=== PATIENT | male | born 1960 | race African-American/Black ===

== ENCOUNTER 2020-11-02 15:26 | Inpatient (IN) ==
[2020-11-02] MEDS ORDERED: ONDANSETRON INJ 2 MG/ML 2 ML VIAL IV STA (15:38)
[2020-11-02] MEDS ORDERED: diphenhydrAMINE 50 MG/ML VIAL IV STA (15:38)
[2020-11-02] MEDS ORDERED: PROMETHAZINE 6.25 MG/50.25 ML BAG IV STA (15:40)
--- NOTE | 2020-11-02 15:43 | Emergency Department Note ---
Impression & Plan Hypoxia, Acute dehydration, Pneumonia, Tachycardia, Rhabdomyolysis, COVID-19 ED Provider Note NAME: NEGRIAT PERRY AGE: 60 SEX: M : 1960 ARRIVES VIA: Ambulance INFORMANT: [Patient][ems, guards] ED PROVIDER(S): [Daryn Wang MD] CHIEF COMPLAINT: Vomiting and diarrhea HISTORY OF PRESENT ILLNESS: The patient is a 60-year-old male who presents from [facility]. He presents by EMS. The patient apparently has been sick for 5 days with nausea, vomiting and diarrhea. He does not have any abdominal pain. He feels dehydrated. He is weak. He has not really been short of breath, no real cough. No fever. No chills or body aches. He states that right now, he is just having more dry heaves than anything. He is unable to tolerate oral intake. The patient denies urinary complaints. He denies any chest pain. He feels very thirsty though. The patient did test positive for Covid 19 today. Of note, he was by report hypoxic prior to arrival. His saturations improved on oxygen. REVIEW OF SYSTEMS: See HPI for pertinent positives and negatives. A total of ten systems were reviewed and were otherwise negative. PMHx/PSHx: See Below SOCIAL HISTORY: See Below. PHYSICAL EXAM: GENERAL: Patient is in moderate distress, HEENT: No acute trauma, normocephalic atraumatic, mucous membranes very dry, no nasal congestion, no scleral icterus. NECK: No stridor, no adenopathy, no meningismus, trachea is midline. LUNGS: Speaks in full sentences, no respiratory distress, no obvious wheeze, no accessory muscle use. HEART: Tachycardic, regular rhythm, equal radial pulses bilaterally. ABDOMEN: Soft, nontender, bowel sounds positive, no hernias, no peritonitis. EXTREMITIES: No cyanosis or edema, full range of motion of all the joints without pain or difficulty, no signs for acute trauma. NEUROLOGIC: Oriented x 3, no acute motor or sensory deficits, no focal weakness. SKIN: No rash, no jaundice, no diaphoresis. DIFFERENTIAL DIAGNOSIS: Infection, dehydration, metabolic abnormality, hypo/hyperglycemia, COVID-19, pneumonia, UTI, electrolyte disturbance, anemia, hypoxia, cardiac sources, intracerebral event, toxicologic, neurologic, as well as other pathologies. EMERGENCY DEPARTMENT COURSE/PROCEDURES: ECG: Indication was tachycardia. The ECG shows a sinus tachycardia with a rate of 109. There is some nonspecific ST change. There is no ST elevation, no PVCs. The QTc is 468. Continuous Cardiac Monitoring: An order was placed for continuous cardiac monitoring. The monitor shows a rate of 102 with sinus tachycardia. Critical Care Note: I have personally spent 45 minutes of critical care time in the direct management of this patient. This includes bedside care, interpretation of diagnostic studies, and testing, discussion with consultants, patient, and family members, and other required patient management activities. This 45 minutes is in excess of all separately billable procedures. MEDICAL DECISION MAKING: There is a moderate leukocytosis at 17,000, this of course is consistent with infection. There is a normal hemoglobin and platelet count. D-dimer was slightly elevated at 680, this is consistent with a Covid infection. No significant electrolyte abnormality or kidney failure. Lactic acid level was not elevated making sepsis less likely. The patient did have some liver enzyme elevations. His bilirubin and AST were elevated. Total CK was elevated at over 2000, consistent with some mild rhabdomyolysis. ECG showed a sinus tachycardia, no acute ischemia. Cardiac enzyme testing x1 is not consistent with acute cardiac injury. Urinalysis did suggest dehydration, no obvious infection, contamination was seen. Chest film shows a bilateral pneumonia consistent with Covid. Covid testing was reported positive today by the [facility]. The patient seemed in some distress upon my initial evaluation. He appeared quite dehydrated clinically. He was hypoxic without oxygen so O2 supplementation was reapplied. The patient received 1.5 L of IV saline. He was given IV Phenergan, IV Zofran and IV Benadryl. This helped his nausea and vomiting. He was able to drink a soda here without difficulty. He received IV ceftriaxone as empiric antibiotic coverage. Because of his hypoxia and Covid diagnosis, he was given IV Decadron. Patient has made improvement with the above treatment. The patient requires a hospital stay. He is too sick to be discharged back to the [facility]. I did speak with case management and the patient/guards. The on- call hospitalist has been consulted. Past Med/Surg History Medical History Hypertension Social History Smoking Status: Former smoker Feels Safe at Home: Yes Allergies Allergies Allergy/AdvReac Type Severity Reaction Status Date / Time No Known Allergies Allergy Verified 11/02/20 15:55 Home Meds Home Medications Medication Instructions Recorded Confirmed amlodipine 10 mg PO DAILY 11/02/20 11/02/20 aspirin 81 mg PO DAILY 11/02/20 11/02/20 diphenhydramine HCl 50 mg PO BID 11/02/20 11/02/20 hydrochlorothiazide 25 mg PO DAILY 11/02/20 11/02/20 levalbuterol tartrate [Xopenex HFA] 2 inh INHALATION QID PRN 11/02/20 11/02/20 lisinopril 40 mg PO DAILY 11/02/20 11/02/20 mirtazapine 15 mg PO HS 11/02/20 11/02/20 montelukast 10 mg PO QPM 11/02/20 11/02/20 Results & Data (ED) Vital Signs Vital Signs - 24 hr 11/02/20 15:39 11/02/20 15:41 11/02/20 15:49 Temperature 36.5 C Temperature Source Oral Pulse Rate 109 H 107 H 109 H Pulse Rate from SpO2 Sensor 110 H 107 H Pulse Rhythm Regular Pulse Strength Normal Respiratory Rate 23 20 20 Respiratory Effort / Characteristics Non-Labored Spontaneous Respiratory Depth Normal Respiratory Pattern Regular Blood Pressure 148/126 H 148/126 H Blood Pressure Mean 130 133 Pulse Oximetry 96 96 97 Oxygen Delivery Method Nasal Cannula Nasal Cannula Nasal Cannula Oxygen Flow Rate 4 4 4 Sepsis Recent Fever Within 48 Hours No Sepsis New/Unexplained Change in Mental Status N/A Sepsis Action Taken by Nursing No Action Required 11/02/20 15:50 11/02/20 15:57 11/02/20 16:00 Temperature Temperature Source Pulse Rate 109 H 106 H Pulse Rate from SpO2 Sensor 109 H 106 H Pulse Rhythm Pulse Strength Respiratory Rate 25 H 26 H Respiratory Effort / Characteristics Respiratory Depth Respiratory Pattern Blood Pressure Blood Pressure Mean Pulse Oximetry 95 96 Oxygen Delivery Method Nasal Cannula Nasal Cannula Nasal Cannula Oxygen Flow Rate 4 4 4 Sepsis Recent Fever Within 48 Hours Sepsis New/Unexplained Change in Mental Status Sepsis Action Taken by Nursing 11/02/20 16:10 11/02/20 16:20 11/02/20 16:30 Temperature Temperature Source Pulse Rate 105 H 108 H 109 H Pulse Rate from SpO2 Sensor 105 H 108 H 109 H Pulse Rhythm Pulse Strength Respiratory Rate 24 28 H 23 Respiratory Effort / Characteristics Respiratory Depth Respiratory Pattern Blood Pressure 161/115 H Blood Pressure Mean 127 Pulse Oximetry 95 95 95 Oxygen Delivery Method Nasal Cannula Nasal Cannula Nasal Cannula Oxygen Flow Rate 4 4 4 Sepsis Recent Fever Within 48 Hours Sepsis New/Unexplained Change in Mental Status Sepsis Action Taken by Nursing 11/02/20 16:31 11/02/20 16:40 11/02/20 16:50 Temperature Temperature Source Pulse Rate 109 H 109 H 108 H Pulse Rate from SpO2 Sensor 109 H 110 H 108 H Pulse Rhythm Pulse Strength Respiratory Rate 26 H 21 29 H Respiratory Effort / Characteristics Respiratory Depth Respiratory Pattern Blood Pressure Blood Pressure Mean Pulse Oximetry 96 98 95 Oxygen Delivery Method Nasal Cannula Nasal Cannula Nasal Cannula Oxygen Flow Rate 4 4 4 Sepsis Recent Fever Within 48 Hours Sepsis New/Unexplained Change in Mental Status Sepsis Action Taken by Nursing 11/02/20 17:00 11/02/20 17:01 11/02/20 17:03 Temperature Temperature Source Pulse Rate 104 H 106 H Pulse Rate from SpO2 Sensor 105 H 106 H Pulse Rhythm Pulse Strength Respiratory Rate 21 34 H Respiratory Effort / Characteristics Respiratory Depth Respiratory Pattern Blood Pressure 150/107 H Blood Pressure Mean 125 Pulse Oximetry 94 95 Oxygen Delivery Method Nasal Cannula Room Air Room Air Oxygen Flow Rate 4 Sepsis Recent Fever Within 48 Hours Sepsis New/Unexplained Change in Mental Status Sepsis Action Taken by Nursing 11/02/20 17:10 11/02/20 17:30 11/02/20 18:00 Temperature Temperature Source Pulse Rate 109 H 106 H Pulse Rate from SpO2 Sensor 109 H 113 H Pulse Rhythm Pulse Strength Respiratory Rate 26 H 24 Respiratory Effort / Characteristics Respiratory Depth Respiratory Pattern Blood Pressure 175/110 H 165/110 H Blood Pressure Mean 131 143 Pulse Oximetry 88 L 93 Oxygen Delivery Method Room Air Oxygen Flow Rate Sepsis Recent Fever Within 48 Hours Sepsis New/Unexplained Change in Mental Status Sepsis Action Taken by Nursing 11/02/20 18:20 11/02/20 18:30 11/02/20 18:31 Temperature Temperature Source Pulse Rate 106 H 106 H 112 H Pulse Rate from SpO2 Sensor 107 H 106 H 108 H Pulse Rhythm Pulse Strength Respiratory Rate 30 H 26 H 16 Respiratory Effort / Characteristics Respiratory Depth Respiratory Pattern Blood Pressure 183/108 H Blood Pressure Mean 147 Pulse Oximetry 96 95 91 Oxygen Delivery Method Nasal Cannula Nasal Cannula Nasal Cannula Oxygen Flow Rate 3 3 3 Sepsis Recent Fever Within 48 Hours Sepsis New/Unexplained Change in Mental Status Sepsis Action Taken by Nursing 11/02/20 19:00 11/02/20 19:31 Temperature Temperature Source Pulse Rate 102 H 102 H Pulse Rate from SpO2 Sensor 102 H 102 H Pulse Rhythm Pulse Strength Respiratory Rate 21 24 Respiratory Effort / Characteristics Respiratory Depth Respiratory Pattern Blood Pressure 145/96 H 130/92 Blood Pressure Mean 102 102 Pulse Oximetry 96 96 Oxygen Delivery Method Oxygen Flow Rate Sepsis Recent Fever Within 48 Hours Sepsis New/Unexplained Change in Mental Status Sepsis Action Taken by [facility] Medications Current Medication List: was personally reviewed by me Laboratory Data Attestation: I reviewed the patient's lab results. Result diagrams: 11/02/20 15:55 11/02/20 15:55 Lab Results 11/02/20 11/02/20 11/02/20 Range/Units 15:55 15:55 15:55 WBC 17.26 H (4.8-10.8) K/uL RBC 4.70 (4.7-6.1) M/uL Hgb 14.2 (14.0-18.0) g/dL Hct 43.0 (42-52) % MCV 91.5 (80-100) fL MCH 30.2 (25-34) pg MCHC 33.0 (32-36) g/dL RDW Std Deviation 43.4 (36.4-46.3) fL RDW Coeff of Vineet 12.9 (11.5-14.5) % Plt Count 274 (130-400) K/uL MPV 11.5 H (7.4-10.4) fL Immature Gran % (Auto) 0.2 % Neut % (Auto) 85.1 % Lymph % (Auto) 7.1 % [place] % (Auto) 7.4 % Eos % (Auto) 0.0 % Baso % (Auto) 0.2 % Neut # (Auto) 14.68 H (1.4-6.5) K/uL Lymph # (Auto) 1.22 (1.2-3.4) K/uL [place] # (Auto) 1.28 H (0.11-0.59) K/uL Eos # (Auto) 0.00 (0-0.5) K/uL Baso # (Auto) 0.04 (0-0.2) K/uL Immature Gran # (Auto) 0.04 H (0.00-0.02) K/uL Echinocytes 1+ D-Dimer (0-500) ug/L FEU Sodium 137 (136-145) mmol/L Potassium 4.7 (3.5-5.1) mmol/L Chloride 101 (98-107) mmol/L Carbon Dioxide 30 (21-32) mmol/L Anion Gap 6.0 (3-11) BUN 29 H (7-18) mg/dl Creatinine 1.23 (0.6-1.4) mg/dl Est Cr Clr Drug Dosing 76.1 ml/min Est GFR ( Amer) 72.5 Est GFR (Non-Af Amer) 62.5 BUN/Creatinine Ratio 23.6 H (10-20) Glucose 106 H (70-99) mg/dl Lactate 1.2 (0.4-2.0) mmol/L Calcium 8.7 (8.5-10.1) mg/dl Magnesium 3.2 H (1.8-2.4) mg/dl Total Bilirubin 3.6 H (0.2-1) mg/dl AST 82 H (15-37) U/L ALT 51 (12-78) U/L Alkaline Phosphatase 85 (45-117) U/L Total Creatine Kinase 2574 H (39-308) U/L Troponin I 0.019 (0-0.045) ng/ml Total Protein 9.1 H (6.4-8.2) gm/dl Albumin 3.5 (3.4-5.0) gm/dl Globulin 5.6 H (2.5-4.0) gm/dl Albumin/Globulin Ratio 0.6 L (0.9-2) Urine Color Urine Appearance (Clear) Urine pH (4.5-7.5) Ur Specific Benton (1.000-1.030) Urine Protein (Negative) Urine Glucose (UA) (Negative) Urine Ketones (Negative) Urine Blood (Negative) Urine Nitrite (Negative) Urine Bilirubin (Negative) Urine Urobilinogen (Negative) Ur Leukocyte Esterase (Negative) Urine WBC (Auto) (0-5) /hpf Urine RBC (Auto) (0-4) /hpf U Hyaline Cast (Auto) (0-5) /lpf U Epithel Cells (Auto) (0-5) /lpf Urine Bacteria (Auto) (Negative) Ur Renal Epithelial Cell Urine Mucus (None Prsent) Urine Yeast 11/02/20 11/02/20 Range/Units 15:55 18:22 WBC (4.8-10.8) K/uL RBC (4.7-6.1) M/uL Hgb (14.0-18.0) g/dL Hct (42-52) % MCV (80-100) fL MCH (25-34) pg MCHC (32-36) g/dL RDW Std Deviation (36.4-46.3) fL RDW Coeff of Vineet (11.5-14.5) % Plt Count (130-400) K/uL MPV (7.4-10.4) fL Immature Gran % (Auto) % Neut % (Auto) % Lymph % (Auto) % [place] % (Auto) % Eos % (Auto) % Baso % (Auto) % Neut # (Auto) (1.4-6.5) K/uL Lymph # (Auto) (1.2-3.4) K/uL [place] # (Auto) (0.11-0.59) K/uL Eos # (Auto) (0-0.5) K/uL Baso # (Auto) (0-0.2) K/uL Immature Gran # (Auto) (0.00-0.02) K/uL Echinocytes D-Dimer 680 H* (0-500) ug/L FEU Sodium (136-145) mmol/L Potassium (3.5-5.1) mmol/L Chloride (98-107) mmol/L Carbon Dioxide (21-32) mmol/L Anion Gap (3-11) BUN (7-18) mg/dl Creatinine (0.6-1.4) mg/dl Est Cr Clr Drug Dosing ml/min Est GFR ( Amer) Est GFR (Non-Af Amer) BUN/Creatinine Ratio (10-20) Glucose (70-99) mg/dl Lactate (0.4-2.0) mmol/L Calcium (8.5-10.1) mg/dl Magnesium (1.8-2.4) mg/dl Total Bilirubin (0.2-1) mg/dl AST (15-37) U/L ALT (12-78) U/L Alkaline Phosphatase (45-117) U/L Total Creatine Kinase (39-308) U/L Troponin I (0-0.045) ng/ml Total Protein (6.4-8.2) gm/dl Albumin (3.4-5.0) gm/dl Globulin (2.5-4.0) gm/dl Albumin/Globulin Ratio (0.9-2) Urine Color Door Urine Appearance Clear (Clear) Urine pH 5.5 (4.5-7.5) Ur Specific Benton 1.032 H (1.000-1.030) Urine Protein 2+ H (Negative) Urine Glucose (UA) Negative (Negative) Urine Ketones 2+ H (Negative) Urine Blood 2+ H (Negative) Urine Nitrite Positive A (Negative) Urine Bilirubin Negative (Negative) Urine Urobilinogen Negative (Negative) Ur Leukocyte Esterase 1+ H (Negative) Urine WBC (Auto) 5-10 H (0-5) /hpf Urine RBC (Auto) 0-4 (0-4) /hpf U Hyaline Cast (Auto) 0 (0-5) /lpf U Epithel Cells (Auto) >30 H (0-5) /lpf Urine Bacteria (Auto) Negative (Negative) Ur Renal Epithelial Cell Not Reportable Urine Mucus Present A (None Prsent) Urine Yeast Not Reportable Administered Medications Discontinued Medications Dexamethasone (Dexamethasone Sod Inj 10 Mg/Ml Vial) 6 mg IV NOW ONE Stop: 11/02/20 17:13 Last Admin: 11/02/20 17:27 Dose: 6 mg Documented by: [id number] Diphenhydramine HCl (Diphenhydramine 50 Mg/Ml Vial) 12.5 mg IV NOW STA Stop: 11/02/20 15:39 Last Admin: 11/02/20 16:05 Dose: 12.5 mg Documented by: [id number] Sodium Chloride (Nss 1000ml) 1,000 mls @ 999 mls/hr IV .Q1H1M SUSANNE Stop: 11/02/20 16:45 Last Infusion: 11/02/20 17:08 Dose: 0 mls/hr Documented by: [id number] Admin: 11/02/20 16:05 Dose: 999 mls/hr Documented by: [id number] Promethazine HCl (Phenergan) 6.25 mg in 50.25 mls @ 201 mls/hr IV NOW STA Stop: 11/02/20 15:54 Last Infusion: 12/04/20 16:58 Dose: 0 mls/hr Documented by: [id number] Admin: 11/02/20 16:02 Dose: 201 mls/hr Documented by: [id number] Sodium Chloride (Nss 1000ml) 500 mls @ 999 mls/hr IV .Q31M ONE Stop: 11/02/20 17:33 Last Infusion: 11/02/20 18:30 Dose: 0 mls/hr Documented by: [id number] Admin: 11/02/20 17:27 Dose: 999 mls/hr Documented by: [id number] Ceftriaxone Sodium (Rocephin) 2,000 mg in 70 mls @ 140 mls/hr IV NOW STA Stop: 11/02/20 17:41 Last Infusion: 11/02/20 18:30 Dose: 0 mls/hr Documented by: [id number] Admin: 11/02/20 17:27 Dose: 140 mls/hr Documented by: [id number] Ondansetron HCl (Ondansetron Inj 2 Mg/Ml 2 Ml Vial) 4 mg IV NOW STA Stop: 11/02/20 15:39 Last Admin: 11/02/20 16:05 Dose: 4 mg Documented by: [id number] Imaging Data Radiologist's Impression: XR chest 1V portable HISTORY: weakness COMPARISON: None. FINDINGS: No pneumothorax. No pleural effusions. The heart is mildly enlarged. There are hazy bilateral mid to lower lung zone airspace opacities consistent with a pneumonia. There are low lung volumes. IMPRESSION: Hazy bilateral mid to lower lung zone airspace opacities consistent with a pneumonia. Discharge Plan Visit Data Chief Complaint: Shortness of Breath/Dyspnea Stated Complaint: SOB, COVID + ED Provider: Daryn Wang Discharge Problem: Hypoxia, Acute dehydration, Pneumonia, Tachycardia, Rhabdomyolysis, COVID-19 Patient Disposition: Admitted As Inpatient Condition: Fair Forms Stand Alone Forms: My [facility] [employer] Prescriptions Prescriptions: No Action diphenhydramine HCl 50 mg Capsule 50 mg PO BID RF: 0 amlodipine 10 mg Tablet 10 mg PO DAILY RF: 0 aspirin 81 mg Tablet,Chewable 81 mg PO DAILY RF: 0 montelukast 10 mg Tablet 10 mg PO QPM RF: 0 hydrochlorothiazide 25 mg Tablet 25 mg PO DAILY RF: 0 mirtazapine 15 mg Tablet 15 mg PO HS RF: 0 lisinopril 40 mg Tablet 40 mg PO DAILY RF: 0 levalbuterol tartrate [Xopenex HFA] 45 mcg/actuation Hfa Aerosol Inhaler 2 inh INHALATION QID PRN (Reason: Shortness Of Breath) RF: 0 Referrals Referrals: David BARRERA [Primary Care Provider] - Discharge Problem: Pneumonia Qualifiers: Pneumonia type: due to unspecified organism Laterality: bilateral Lung location: unspecified part of lung Qualified Code(s): J18.9 - Pneumonia, unspecified organism Rhabdomyolysis Qualifiers: Rhabdomyolysis type: non-traumatic Qualified Code(s): M62.82 - Rhabdomyolysis
[2020-11-02] MEDS ORDERED: SODIUM CHLORIDE 0.9% 1000ML 1,000 ML IV SCH (15:45)
[2020-11-02 16:18] LABS: Hemoglobin 14.2 g/dL (14.0-18.0); Mean Corpuscular Hemoglobin 30.2 pg (25-34); Mean Corpuscular Volume 91.5 fL (80-100); Mean Platelet Volume 11.5 fL (7.4-10.4); Platelet Count 274 K/uL (130-400); RDW Coefficient of Variation 12.9 % (11.5-14.5); RDW Standard Deviation 43.4 fL (36.4-46.3); White Blood Count 17.26 K/uL (4.8-10.8)
--- NOTE | 2020-11-02 16:27 | XRay Report ---
XR chest 1V portable HISTORY: weakness COMPARISON: None. FINDINGS: No pneumothorax. No pleural effusions. The heart is mildly enlarged. There are hazy bilater al mid to lower lung zone airspace opacities consistent with a pneumonia. There are low lung volumes. IMPRESSION: Hazy bilateral mid to lower lung zone airspace opacities consistent with a pneumonia. ACT 112: Negative or not required by law. Electronically signed by: Fabio Javier M.D. 11/02/2020 4:25 PM
[2020-11-02 16:36] LABS: Albumin Level 3.5 gm/dl (3.4-5.0); BUN Creatinine Ratio 23.6 (10-20); Calcium 8.7 mg/dl (8.5-10.1); Creatinine Clr Calc Pharmacy 76.1 ml/min; Est GFR (African American) 72.5; Est GFR (Non-African American) 62.5; Magnesium 3.2 mg/dl (1.8-2.4); Potassium 4.7 mmol/L (3.5-5.1)
[2020-11-02 16:45] LABS: Basophils # (auto) 0.04 K/uL (0-0.2); Basophils % (auto) 0.2 %; Echinocytes 1+; Immature Granulocytes # (auto) 0.04 K/uL (0.00-0.02); Immature Granulocytes % (auto) 0.2 %; Lymphocytes # (auto) 1.22 K/uL (1.2-3.4); Lymphocytes % (auto) 7.1 %; Monocytes # (auto) 1.28 K/uL (0.11-0.59); Monocytes % (auto) 7.4 %; Neutrophils # (auto) 14.68 K/uL (1.4-6.5); Neutrophils % (auto) 85.1 %
[2020-11-02 16:51] LABS: Albumin Globulin Ratio 0.6 (0.9-2); Bilirubin,Total 3.6 mg/dl (0.2-1); Globulin 5.6 gm/dl (2.5-4.0); Total Protein 9.1 gm/dl (6.4-8.2); Troponin I 0.019 ng/ml (0-0.045)
[2020-11-02] MEDS ORDERED: SODIUM CHLORIDE 0.9% 1000ML 500 ML IV ONE (17:03)
[2020-11-02 17:04] LABS: D Dimer 680 ug/L FEU (0-500)
[2020-11-02] MEDS ORDERED: cefTRIAXone SODIUM 2,000 MG/70 ML BAG IV STA (17:12)
[2020-11-02] MEDS ORDERED: DEXAMETHASONE SOD INJ 10 MG/ML VIAL IV ONE (17:12)
--- NOTE | 2020-11-02 18:08 | Electrocardiogram Report ---
Test Reason : Blood Pressure : / mmHG Vent. Rate : 109 BPM Atrial Rate : 109 BPM P-R Int : 152 ms QRS Dur : 094 ms QT Int : 348 ms P-R-T Axes : 018 024 002 degrees QTc Int : 468 ms Sinus tachycardia Possible Left atrial enlargement Borderline ECG No previous ECGs available Confirmed by Adam Devine ([id number]) on 11/02/2020 6:08:41 PM Referred By: [facility] Confirmed By:Jose Angel Devine
--- NOTE | 2020-11-02 18:30 | History & Physical Report ---
Date of Service November 02, 2020 Assessment & Plan (1) Pneumonia due to COVID-19 virus: 60-year-old male prisoner from [facility] with past medical history hypertension, asthma, insomnia presents with concerns for 5 days of nausea vomiting and diarrhea along with shortness of breath admitted with concerns of pneumonia due to COVID-19 virus. Pneumonia due to COVID-19 virus Admit to Covid unit, medical with telemetry Isolation precautionsairborne and contact Continue supplemental O2goal saturation 90%. Patient currently on 3 L nasal cannula with no prior O2 needs at baseline Check inflammatory markersESR, CRP, ferritin, LDH. D-dimer 680 on admission Check procalcitonin -HAP Coverage with IV Vanc/Zosyn in prisoner . Blood cx pending Dexamethasone 6 mg IV daily Convalescent plasmapatient consented in ER and form placed in chart Remdesivir to be discussed with pulmonary team Zinc 220 mg p.o. daily Cholecalciferol 2000 units p.o. daily Pepcid 20 mg IV twice daily Melatonin nightly Lovenox 40 twice daily Tylenol as needed for fever Hypertension Continue amlodipine 10 mg, hydrochlorothiazide 25 mg, lisinopril 40 mg -prn IV Hydralazine for systolic >180 Elevated T.Bili/AST -T bili 3.6 and AST 82 on admit. No prior for comparison -In the setting of 5 days of N/V/D and deferring currently additional imaging -trend daily CMP Mild Rhabdomyolysis -Nontraumatic nonexertional in setting of infection -CK 2574 on admission -Myoglobinuria present -Encouraged PO intake FEN/GI: Regular diet DVT prophylaxis: Lovenox SQ 40 BID CODE STATUS: Full code Dispo: Covid telemetry unit History of Present Illness Chief Complaint: Nausea vomiting diarrhea Primary Care Provider: [facility] 60-year-old male prisoner from [facility] with past medical history hypertension, asthma, insomnia presents with concerns for 5 days of nausea vomiting and diarrhea. Patient reportedly in [facility] with multiple positive Covid exposures. Patient with associated chills, shortness of breath with minimal exertion such as cleaning the bathroom when he reportedly has good lung capacity, fatigue, loss of taste and sore throat. Patient otherwise denies any fevers, sweats, cough, body aches, or other urinary symptoms, chest pain, abdominal pain, urinary symptoms, loss of smell. Patient no other acute concerns or complaints. Pertinent labs: WBC 17.26, D-dimer 680, T bili 3.6, AST 82, CK 2574, Covid positive Chest x-ray: Hazy bilateral mid to lower lung zone airspace opacities consistent with a pneumonia ER course: IV Rocephin 2 g, IV dexamethasone 6 mg, IV diphenhydramine 25 mg, IV Zofran 4 mg every 8 IV promethazine 6.25 mg, NSS 1.5 L Allergies Allergy/AdvReac Type Severity Reaction Status Date / Time No Known Allergies Allergy Verified 11/02/20 15:55 Home Medications Medication Instructions Recorded Confirmed Type amlodipine 10 mg PO DAILY 11/02/20 11/02/20 History aspirin 81 mg PO DAILY 11/02/20 11/02/20 History diphenhydramine HCl 50 mg PO BID 11/02/20 11/02/20 History hydrochlorothiazide 25 mg PO DAILY 11/02/20 11/02/20 History levalbuterol tartrate [Xopenex HFA] 2 inh INHALATION QID PRN 11/02/20 11/02/20 History lisinopril 40 mg PO DAILY 11/02/20 11/02/20 History mirtazapine 15 mg PO HS 11/02/20 11/02/20 History montelukast 10 mg PO QPM 11/02/20 11/02/20 History Past Med/Surg History Medical History Hypertension Social History Smoking Status: Former smoker Hx Alcohol Use: No Hx Substance Use: No Communication Ability: Effective 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 Beliefs That Will Affect Care: None Current Living Situation: Other Current Living Situation Comment: [facility] Feels Safe at Home: Yes Safety Concerns: Feels Safe At This Time Assistive Devices: Oxygen - Continuous Review of Systems Review of Systems: All systems reviewed & are unremarkable except as noted in HPI & below Physical Exam Constitutional: + obese Eyes: PERRL, conjunctivae normal, anicteric sclerae ENMT: Nose: + dry nasal mucous membranes Respiratory: normal respiratory effort; no labored breathing and does not use accessory muscles Cardiovascular: Rate/Rhythm: + tachycardic Gastrointestinal (Abdomen): normal bowel sounds, soft, nontender, no hepatosplenomegaly Skin: no rashes, warm and dry Psychiatric: A+Ox3, euthymic affect Results & Data Results & Data ([facility]) Vital Signs (Past 12 Hours) Vital Signs Temp Pulse Resp BP Pulse Ox 11/02/20 18:00 165/110 H 11/02/20 17:30 106 H 24 175/110 H 93 11/02/20 17:10 109 H 26 H 88 L 11/02/20 17:01 106 H 34 H 95 11/02/20 17:00 104 H 21 150/107 H 94 11/02/20 16:50 108 H 29 H 95 11/02/20 16:40 109 H 21 98 11/02/20 16:31 109 H 26 H 96 11/02/20 16:30 109 H 23 161/115 H 95 11/02/20 16:20 108 H 28 H 95 11/02/20 16:10 105 H 24 95 11/02/20 16:00 106 H 26 H 96 11/02/20 15:50 109 H 25 H 95 11/02/20 15:49 36.5 C 109 H 20 148/126 H 97 11/02/20 15:41 107 H 20 96 11/02/20 15:39 109 H 23 148/126 H 96 Laboratory Results Laboratory Results - last 24 hr 11/02/20 11/02/20 11/02/20 15:55 15:55 15:55 WBC 17.26 H RBC 4.70 Hgb 14.2 Hct 43.0 MCV 91.5 MCH 30.2 MCHC 33.0 RDW Std Deviation 43.4 RDW Coeff of [place] 12.9 Plt Count 274 MPV 11.5 H Immature Gran % (Auto) 0.2 Neut % (Auto) 85.1 Lymph % (Auto) 7.1 Casey % (Auto) 7.4 Eos % (Auto) 0.0 Baso % (Auto) 0.2 Neut # (Auto) 14.68 H Lymph # (Auto) 1.22 Casey # (Auto) 1.28 H Eos # (Auto) 0.00 Baso # (Auto) 0.04 Immature Gran # (Auto) 0.04 H Echinocytes 1+ D-Dimer Sodium 137 Potassium 4.7 Chloride 101 Carbon Dioxide 30 Anion Gap 6.0 BUN 29 H Creatinine 1.23 Est Cr Clr Drug Dosing 76.1 Est GFR ( Amer) 72.5 Est GFR (Non-Af Amer) 62.5 BUN/Creatinine Ratio 23.6 H Glucose 106 H Lactate 1.2 Calcium 8.7 Magnesium 3.2 H Total Bilirubin 3.6 H AST 82 H ALT 51 Alkaline Phosphatase 85 Total Creatine Kinase 2574 H Troponin I 0.019 Total Protein 9.1 H Albumin 3.5 Globulin 5.6 H Albumin/Globulin Ratio 0.6 L Urine Color Urine Appearance Urine pH Ur Specific [place] Urine Protein Urine Glucose (UA) Urine Ketones Urine Blood Urine Nitrite Urine Bilirubin Urine Urobilinogen Ur Leukocyte Esterase 11/02/20 11/02/20 15:55 18:22 WBC RBC Hgb Hct MCV MCH MCHC RDW Std Deviation RDW Coeff of [place] Plt Count MPV Immature Gran % (Auto) Neut % (Auto) Lymph % (Auto) Casey % (Auto) Eos % (Auto) Baso % (Auto) Neut # (Auto) Lymph # (Auto) Casey # (Auto) Eos # (Auto) Baso # (Auto) Immature Gran # (Auto) Echinocytes D-Dimer 680 H* Sodium Potassium Chloride Carbon Dioxide Anion Gap BUN Creatinine Est Cr Clr Drug Dosing Est GFR ( Amer) Est GFR (Non-Af Amer) BUN/Creatinine Ratio Glucose Lactate Calcium Magnesium Total Bilirubin AST ALT Alkaline Phosphatase Total Creatine Kinase Troponin I Total Protein Albumin Globulin Albumin/Globulin Ratio Urine Color Pending Urine Appearance Pending Urine pH Pending Ur Specific [place] Pending Urine Protein Pending Urine Glucose (UA) Pending Urine Ketones Pending Urine Blood Pending Urine Nitrite Pending Urine Bilirubin Pending Urine Urobilinogen Pending Ur Leukocyte Esterase Pending Code Status & VTE Plan Code Status FULL Supervising Physician Co-Signing Physician Notes Attending attestation Pt seen and examined in concert with Dr. Barbosa. In agreement with the documented findings as noted in the resident documentation with any exceptions or additions as noted here. Resting comfortably in bed tolerating 2LNC without subjective SOB. On examination, scattered rhonchi bilateral with some decreased BS at bases. S1/S2 nl RRR no MCG. Abd NT/ND BS + PNA 2/2 COVID-19 virus - agree w/ dexamethasone, supportive care and supplementations as noted. Follow up markers. Start Vanc/Zosyn and f/u Cx ([facility] population) HTN - continue home regimen and monitor Else see resident documentation as noted. Resident Activity Tracking Resident Involvement: Resident Care Provided Care Provided: Adult Hospital Medicine
[2020-11-02 18:38] LABS: Appearance Urine Clear (Clear); Bacteria Urine Automated Negative (Negative); Blood Urine 2+ (Negative); Color Urine Orange; Epithelial Cell Urine Auto >30 /lpf (0-5); Glucose Urine UA Negative (Negative); Ketones Urine 2+ (Negative); Leukocyte Esterase Urine 1+ (Negative); Nitrite Urine Positive (Negative); Protein Urine 2+ (Negative); Specific Gravity Urine 1.032 (1.000-1.030); Urobilinogen Urine Negative (Negative); pH Urine 5.5 (4.5-7.5)
[2020-11-02 18:48] LABS: Bilirubin Urine Negative (Negative); Ictotest Urine Negative (Negative)
[2020-11-02] MEDS ORDERED: hydrALAZINE HCL 20 MG/ML VIAL IV STA (18:52)
[2020-11-02 18:57] LABS: Cast Urine Automated 0 /lpf (0-5); RBC Urine Automated 0-4 /hpf (0-4)
[2020-11-02 18:58] LABS: Mucus Urine Present (None Prsent)
[2020-11-02] MEDS ORDERED: VANCOMYCIN CONSULT ACTIVE PRN (21:28)
[2020-11-02] MEDS ORDERED: hydrALAZINE HCL 20 MG/ML VIAL IV PRN (21:28)
[2020-11-02] MEDS ORDERED: PIPERACILL/TAZOBAC CONSULT ACTIVE PRN (21:28)
[2020-11-02] MEDS ORDERED: ALUMINUM/MAGNESIUM SUSP 30 ML UDC PO PRN (21:28)
[2020-11-02] MEDS ORDERED: ACETAMINOPHEN 325 MG TAB PO PRN (21:28)
[2020-11-02] MEDS ORDERED: ONDANSETRON INJ 2 MG/ML 2 ML VIAL IV PRN (21:28)
[2020-11-02] MEDS ORDERED: PIPERACILLIN/TAZOBACTAM 4.5 GM in DEXTROSE 5% 100 ML IV ONE (21:45)
[2020-11-02] MEDS ORDERED: VANCOMYCIN HCL 2,500 MG in SODIUM CHLORIDE 0.9% 500 ML IV ONE (22:00)
--- NOTE | 2020-11-02 22:09 | Pharmacy Report ---
Pharmacy Abx Dose Short Note - Date of Service November 02, 2020 - Assessment & Plan Assessment * Mr Lizarraga is a 60 year old M receiving Vancomycin/Zosyn for treatment of pneumonia, COVID + * PMH is significant for asthma, HTN. Pt is currently incarcerated. * Urine and blood cultures pending. CXR consistent w/ pna. Plan Vancomycin * Vancomycin 2500mg (~24mg/kg) IV x1 dose, then * vancomycin 1500mg (~14.5mg/kg) IV q12h * Patient's estimated p'kinetic parameters (based on CrCl ~ 76mL/min): * Vd ~ 0.7L/kg Ke ~ 0.067/hr t1/2 ~ 10.3hr * Goal trough level for pulmonary indication: 15 to 20 mcg/mL * Trough level ordered for 11/04, prior to the 3rd maintenance dose. This will not yet represent steady-state. Zosyn * 4.5gm IV x1 dose, then * 4.5gm IV q8h, extended infusion Pharmacy will continue to follow and will adjust dose/frequency as necessary. Thank you.
[2020-11-02] MEDS: MIRTAZAPINE TAB 15 MG TAB PO SCH (22:19)
[2020-11-02] MEDS: MONTELUKAST SODIUM 10 MG TABLET PO SCH (22:19)
[2020-11-02] MEDS: FAMOTIDINE 20 MG in SYRINGE 3 ML IV SCH (22:19)
[2020-11-02] MEDS: diphenhydrAMINE Capsule 25 MG CAP PO SCH (22:19)
[2020-11-02 22:28] LABS: C Reactive Protein 20.5 mg/dl (0-0.29); Ferritin 1287.6 ng/ml (8-388)
[2020-11-02] MEDS: MELATONIN 3 MG TAB PO SCH (22:33)
[2020-11-02] MEDS: ENOXAPARIN INJ 40 MG/0.4 ML SYR SQ SCH (22:34)
[2020-11-03] MEDS: PIPERACILLIN/TAZOBACTAM 4.5 GM in DEXTROSE 5% 100 ML IV SCH ×2 (04:05→11:30)
[2020-11-03 04:10] LABS: Hematocrit (blood only) 39.1 % (42-52); Hemoglobin 12.3 g/dL (14.0-18.0); Mean Corpuscular Hemoglobin 29.4 pg (25-34); Mean Corpuscular Hgb Conc 31.5 g/dL (32-36); Mean Corpuscular Volume 93.3 fL (80-100); Mean Platelet Volume 11.6 fL (7.4-10.4); Platelet Count 279 K/uL (130-400); RDW Coefficient of Variation 13.1 % (11.5-14.5); RDW Standard Deviation 44.7 fL (36.4-46.3); Red Blood Count 4.19 M/uL (4.7-6.1); White Blood Count 14.02 K/uL (4.8-10.8)
[2020-11-03 04:28] LABS: Albumin Level 2.9 gm/dl (3.4-5.0); BUN Creatinine Ratio 26.9 (10-20); Calcium 8.1 mg/dl (8.5-10.1); Creatinine Clr Calc Pharmacy 76.7 ml/min; Est GFR (African American) 73.2; Est GFR (Non-African American) 63.1; Potassium 4.7 mmol/L (3.5-5.1)
[2020-11-03 04:35] LABS: Albumin Globulin Ratio 0.6 (0.9-2); Bilirubin,Total 2.4 mg/dl (0.2-1); Total Protein 7.9 gm/dl (6.4-8.2)
[2020-11-03 04:58] LABS: Basophils # (auto) 0.06 K/uL (0-0.2); Basophils % (auto) 0.4 %; Immature Granulocytes # (auto) 0.04 K/uL (0.00-0.02); Immature Granulocytes % (auto) 0.3 %; Lymphocytes # (auto) 1.24 K/uL (1.2-3.4); Lymphocytes % (auto) 8.8 %; Monocytes # (auto) 0.82 K/uL (0.11-0.59); Monocytes % (auto) 5.8 %; Neutrophils # (auto) 11.86 K/uL (1.4-6.5); Neutrophils % (auto) 84.7 %
[2020-11-03] MEDS: diphenhydrAMINE Capsule 25 MG CAP PO SCH ×2 (08:30→19:49)
[2020-11-03] MEDS: ASPIRIN 81 MG ECTAB PO SCH (08:30)
[2020-11-03] MEDS ORDERED: hydroCHLOROthiazide 25 MG TAB PO SCH (09:00)
[2020-11-03] MEDS ORDERED: ZINC SULFATE 220 MG CAPSULE PO SCH (09:00)
[2020-11-03] MEDS ORDERED: dexAMETHasone 6 MG in SYRINGE 0 ML IV SCH (09:00)
[2020-11-03] MEDS ORDERED: CHOLECALCIFEROL 1,000 UNITS 25 MCG TAB PO SCH (09:00)
[2020-11-03] MEDS ORDERED: lisinopril 40 MG TAB PO SCH (09:00)
[2020-11-03] MEDS: FAMOTIDINE 20 MG in SYRINGE 3 ML IV SCH (09:45)
[2020-11-03] MEDS ORDERED: VANCOMYCIN HCL 1,500 MG in SODIUM CHLORIDE 0.9% 500 ML IV SCH (10:00)
[2020-11-03] MEDS: amLODIPine BESYLATE 5 MG TAB PO SCH (10:00)
[2020-11-03] MEDS: ENOXAPARIN INJ 40 MG/0.4 ML SYR SQ SCH (10:00)
[2020-11-03] MEDS ORDERED: AZITHROMYCIN 250 MG TAB PO ONE (18:07)
[2020-11-03] MEDS ORDERED: cefTRIAXone SODIUM 1,000 MG in DEXTROSE 5% 50 ML IV SCH (18:15)
[2020-11-03] MEDS: MONTELUKAST SODIUM 10 MG TABLET PO SCH (19:49)
[2020-11-03] MEDS: MIRTAZAPINE TAB 15 MG TAB PO SCH (19:50)
[2020-11-03] MEDS: cefTRIAXone SODIUM 2,000 MG in DEXTROSE 5% 50 ML IV SCH (20:11)
[2020-11-03] MEDS: MELATONIN 3 MG TAB PO SCH (20:13)
[2020-11-04] MEDS: dexAMETHasone 4 MG TAB PO SCH (07:43)
[2020-11-04] MEDS: ASPIRIN 81 MG ECTAB PO SCH (07:44)
[2020-11-04] MEDS: amLODIPine BESYLATE 5 MG TAB PO SCH (07:44)
[2020-11-04] MEDS: ENOXAPARIN INJ 40 MG/0.4 ML SYR SQ SCH (07:44)
[2020-11-04] MEDS: diphenhydrAMINE Capsule 25 MG CAP PO SCH ×2 (07:44→22:23)
[2020-11-04 07:54] LABS: BUN Creatinine Ratio 33.6 (10-20); Calcium 8.2 mg/dl (8.5-10.1); Creatinine Clr Calc Pharmacy 92.8 ml/min; Est GFR (Non-African American) 79.3; Magnesium 3.4 mg/dl (1.8-2.4); Potassium 4.3 mmol/L (3.5-5.1)
[2020-11-04 08:02] LABS: Hematocrit (blood only) 37.2 % (42-52); Hemoglobin 11.6 g/dL (14.0-18.0); Mean Corpuscular Hemoglobin 29.4 pg (25-34); Mean Corpuscular Hgb Conc 31.2 g/dL (32-36); Mean Corpuscular Volume 94.4 fL (80-100); Platelet Count 308 K/uL (130-400); RDW Coefficient of Variation 13.1 % (11.5-14.5); RDW Standard Deviation 45.2 fL (36.4-46.3); Red Blood Count 3.94 M/uL (4.7-6.1); White Blood Count 15.48 K/uL (4.8-10.8)
[2020-11-04] MEDS ORDERED: VANCOMYCIN TROUGH ONE (09:30)
[2020-11-04] MEDS ORDERED: LOPERAMIDE HCL 2 MG CAP PO PRN (13:15)
--- NOTE | 2020-11-04 13:25 | Hospitalist Progress Note ---
Date of Service November 04, 2020 Assessment & Plan (1) Pneumonia due to COVID-19 virus: Weaning O2 as able - Down to 1 L. - Continue dexamethasone. - Procal down from 0.36 to 0.16 from 11/02 to 11/04. Will give CAP course to cover for any superimposed bacterial process. WBC was elevated even prior to abx, so more concern than most Covid patients. - Imodium PRN for diarrhea (2) Hypertension: Hadn't been taking any of his HTN meds within the last few weeks prior to admission. BP today is 120/75. - Continue amlodipine only (3) DVT prophylaxis: Lovenox 40 mg SQ daily Admission and Anticipated Discharge Date Admission Date: November 02, 2020 Subjective No real shortness of breath. Doing well. Reports no fevers/chills, chest pain, shortness of breath, abdominal pain, nausea, or vomiting. Physical Exam Constitutional: WD/WN, vitals as above Eyes: EOM intact bilaterally; no conjunctival abnormality ENMT: external ear and nose normal, oropharynx normal Neck: trachea midline, no thyromegaly normal visual inspection Respiratory: normal respiratory effort, lungs clear to auscultation no respiratory distress Cardiovascular: RRR, no murmur, no edema Gastrointestinal (Abdomen): Inspection/Auscultation: abdomen normal to inspection; abdomen not distended Musculoskeletal: no cyanosis or clubbing, extremities motor strength 5/5 Skin: no rashes, warm and dry Neurologic: moves all extremities and awake Psychiatric: Orientation: alert, oriented to person and cooperative Results & Data Results & Data ([facility]) Vital Signs (Past 12 Hours) Vital Signs Temp Pulse Pulse Resp BP BP Pulse Ox 11/04/20 11:34 36.5 C 78 18 121/75 95 11/04/20 08:59 68 11/04/20 07:29 36.5 C 82 18 126/81 94 11/04/20 03:03 36.5 C 70 19 145/99 H 96 PG Care Time/CCT Total # of Minutes Spent Total Time Spent with Patient: Total time spent is greater than 50% in coordination of care (as documented) at patient's floor/unit and/or counseling patient: Coding Level of Care Code 06303 Subseq Hosp Care Lvl 2 Diagnoses Pneumonia due to COVID-19 virus U07.1; J12.89 Hypertension I10 DVT prophylaxis Z29.9
[2020-11-04] MEDS ORDERED: AZITHROMYCIN 250 MG TAB PO SCH (20:00)
[2020-11-04] MEDS: MIRTAZAPINE TAB 15 MG TAB PO SCH (22:23)
[2020-11-04] MEDS: MELATONIN 3 MG TAB PO SCH (22:23)
[2020-11-04] MEDS: MONTELUKAST SODIUM 10 MG TABLET PO SCH (22:26)
[2020-11-04] MEDS: cefTRIAXone SODIUM 2,000 MG in DEXTROSE 5% 50 ML IV SCH (22:27)
[2020-11-05 07:22] LABS: Hematocrit (blood only) 36.9 % (42-52); Hemoglobin 11.3 g/dL (14.0-18.0); Mean Corpuscular Hemoglobin 29.2 pg (25-34); Mean Corpuscular Hgb Conc 30.6 g/dL (32-36); Mean Corpuscular Volume 95.3 fL (80-100); Mean Platelet Volume 11.5 fL (7.4-10.4); Platelet Count 392 K/uL (130-400); RDW Coefficient of Variation 13.3 % (11.5-14.5); RDW Standard Deviation 46.1 fL (36.4-46.3); Red Blood Count 3.87 M/uL (4.7-6.1); White Blood Count 10.45 K/uL (4.8-10.8)
[2020-11-05 07:53] LABS: Albumin Level 2.7 gm/dl (3.4-5.0); BUN Creatinine Ratio 26.8 (10-20); Calcium 7.9 mg/dl (8.5-10.1); Creatinine Clr Calc Pharmacy 96.6 ml/min; Est GFR (African American) 95.4; Est GFR (Non-African American) 82.3; Magnesium 3.1 mg/dl (1.8-2.4); Potassium 4.5 mmol/L (3.5-5.1)
[2020-11-05 08:05] LABS: Albumin Globulin Ratio 0.6 (0.9-2); Globulin 4.3 gm/dl (2.5-4.0)
[2020-11-05] MEDS: ASPIRIN 81 MG ECTAB PO SCH (08:40)
[2020-11-05] MEDS: dexAMETHasone 4 MG TAB PO SCH (08:41)
[2020-11-05] MEDS: ENOXAPARIN INJ 40 MG/0.4 ML SYR SQ SCH (08:42)
[2020-11-05] MEDS: diphenhydrAMINE Capsule 25 MG CAP PO SCH (08:42)
[2020-11-05] MEDS: amLODIPine BESYLATE 5 MG TAB PO SCH (08:43)
--- NOTE | 2020-11-05 18:17 | Discharge Summary ---
Date of Service November 05, 2020 Admission HPI Per Admitting Provider 60-year-old male prisoner from [facility] with past medical history hypertension, asthma, insomnia presents with concerns for 5 days of nausea vomiting and diarrhea. Patient reportedly in [facility] with multiple positive Covid exposures. Patient with associated chills, shortness of breath with minimal exertion such as cleaning the bathroom when he reportedly has good lung capacity, fatigue, loss of taste and sore throat. Patient otherwise denies any fevers, sweats, cough, body aches, or other urinary symptoms, chest pain, abdominal pain, urinary symptoms, loss of smell. Patient no other acute concerns or complaints. Pertinent labs: WBC 17.26, D-dimer 680, T bili 3.6, AST 82, CK 2574, Covid positive Chest x-ray: Hazy bilateral mid to lower lung zone airspace opacities consistent with a pneumonia ER course: IV Rocephin 2 g, IV dexamethasone 6 mg, IV diphenhydramine 25 mg, IV Zofran 4 mg every 8 IV promethazine 6.25 mg, NSS 1.5 L Principal Diagnosis Covid-19 Discharge Exam Constitutional WD/WN, vitals as above Eyes EOM intact bilaterally; no conjunctival abnormality ENMT external ear and nose normal, oropharynx normal Neck trachea midline, no thyromegaly normal visual inspection Respiratory normal respiratory effort, lungs clear to auscultation no respiratory distress Cardiovascular RRR, no murmur, no edema Gastrointestinal (Abdomen) Inspection/Auscultation: abdomen normal to inspection; abdomen not distended Musculoskeletal no cyanosis or clubbing, extremities motor strength 5/5 Skin no rashes, warm and dry Neurologic moves all extremities and awake Psychiatric Orientation: alert, oriented to person and cooperative Discharge Data Allergies Allergy/AdvReac Type Severity Reaction Status Date / Time No Known Allergies Allergy Verified 11/02/20 15:55 Consultations 11/02/20 18:07 ED Decision to Admit Stat Hospital Course (1) Pneumonia due to COVID-19 virus: Weaning O2 as able - Down to 1 L. - Continue dexamethasone. - Procal down from 0.36 to 0.16 from 11/02 to 11/04. Will give CAP course to cover for any superimposed bacterial process. WBC was elevated even prior to abx, so more concern than most Covid patients. - Imodium PRN for diarrhea - Discharged on remaining dexamethasone and 4 days of CAP abx. Diarrhea was improving by discharge. (2) Hypertension: Hadn't been taking any of his HTN meds within the last few weeks prior to admission. BP today is 120/75. - Continue amlodipine only on discharge (3) DVT prophylaxis: Lovenox 40 mg SQ daily Total Time Total Time Spent Total Time Spent (In Minutes): 35 Discharge Plan Discharge Items [facility] Disposition: [facility] Reason For Visit: COVID PNA Discharge Diagnosis: Covid-19 pneumonia Condition on Discharge: Fair Activity: Resume your previous activity Non-emergency contact: Primary Care Provider Call non-emergency contact if: your symptoms worsen Follow-up/Referrals: David BARRERA [Primary Care Provider] - Diet: Heart Healthy Addtl Attending Provider Instructions: Mr. Lizarraga was admitted for Covid-19 pneumonia. He did well on steroids, and only required 2L NC oxygen. At the time of discharge, he is off oxygen and on room air. He will require 6 more days of dexamethasone 6 mg PO daily. He was treated for pneumonia and will require 4 more days of levofloxacin 750 mg PO daily starting tomorrow. We did only give him amlodipine for his HTN because he reported he hadn't been taking any HTN meds for approx. 3 weeks. He reported he felt they made him nauseated. His BP was generally in a good range with just the amlodipine. (120/80). Pending Studies at Discharge: No Stand-Alone Forms: My [facility] Skilled Items Patient informed of condition?: Yes Discharge Level of Care: Other Communicable Disease: Yes Discharge Prognosis: Improving Lines: None Urinary Catheter: No Medications and DC Order Prescriptions: New dexamethasone 4 mg Tablet 6 mg PO DAILY@0800 Qty: 1 RF: 0 levofloxacin 750 mg tablet 750 mg PO DAILY Qty: 4 RF: 0 Continued diphenhydramine HCl 50 mg Capsule 50 mg PO BID RF: 0 amlodipine 10 mg Tablet 10 mg PO DAILY RF: 0 aspirin 81 mg Tablet,Chewable 81 mg PO DAILY RF: 0 montelukast 10 mg Tablet 10 mg PO QPM RF: 0 mirtazapine 15 mg Tablet 15 mg PO HS RF: 0 levalbuterol tartrate [Xopenex HFA] 45 mcg/actuation Hfa Aerosol Inhaler 2 inh INHALATION QID PRN (Reason: Shortness Of Breath) RF: 0 Discontinued hydrochlorothiazide 25 mg Tablet 25 mg PO DAILY RF: 0 lisinopril 40 mg Tablet 40 mg PO DAILY RF: 0 Discharge Orders: Discharge Order (Routine); Ordered 11/05/20 Ordered By: Boaz Russo Admission Data Admit Date/Time: 11/02/20 18:15 Attending Provider: Boaz Russo Admit Provider: Cliff Barbosa Primary Care Provider: David BARRERA Other Providers: Boaz Russo Other Interventions: Discharge Summary Assessment (RN) Last Done: 11/05/20 12:57 Coding Level of Care Code D/C Day Management >30 mins Diagnoses Pneumonia due to COVID-19 virus U07.1; J12.89 Hypertension I10 DVT prophylaxis Z29.9
== END 2020-11-05 15:01 | DRG 177 ==
LOC: ED 15:26 → 2S 18:15 → SUATTDRO 18:15 → 2S 20:46